=== PATIENT | male | born 1945 | race Caucasian/White ===

== ENCOUNTER 2016-12-17 22:06 | Emergency (ER) | payer OTHER, MEDICARE ==
[~2016-12-17] VITALS: Ht 154.9 cm; Wt 113.4 kg
[2016-12-17 22:22] VITALS: BP_SYST 127
--- NOTE | 2016-12-17 22:30 | NUR ---
Placed in room 03 . Placed on campus monitor, blood pressure machine and pulse oximeter. To gown for exam. Side rails up. Report given to rn.
--- NOTE | 2016-12-17 22:30 | NUR ---
ER at bedside examining patient.
--- NOTE | 2016-12-17 22:33 | NUR ---
Patient AAO x4, sitting in bed, c/o intermittent cough with "runny nose", denies chest pain, denies n/v/d, denies shortness of breath, no acute distress noted. Will continue to monitor.
--- NOTE | 2016-12-17 23:30 | NUR ---
Patient resting quietly. No acute distress noted. Vital signs within normal range.
--- NOTE | 2016-12-18 00:05 | NUR ---
Patient given written and verbal discharge instructions and verbalizes understanding. ER MD discussed with patient the results and treatment provided. Patient in stable condition. ID arm band removed. Rx of albuterol, tylenol, z-nga given. Patient educated on pain management and to follow up with PMD. Pain Scale 0/10. Opportunity for questions provided and answered.
[2016-12-18 00:12] VITALS: BP_SYST 143
== END 2016-12-18 00:12 | disposition home or self-care (01) ==
LOC: SED 22:06
DX: J20.9 Acute bronchitis, unspecified (principal)
CPT/HCPCS: 71010; 99283

== ENCOUNTER 2020-08-03 15:41 | Emergency (ER) | payer OTHER, MEDICARE, SELFPAY ==
[~2020-08-03] VITALS: Ht 182.9 cm; Wt 112.0 kg
[2020-08-03 15:41] VITALS: BP_SYST 130
[2020-08-03] MEDS ORDERED: ALBUTEROL MDI INHALATION 8 GM INH INH PRN (17:00)
[2020-08-03] MEDS ORDERED: AZITHROMYCIN 250 MG TABLET PO ONE (17:00)
[2020-08-03] MEDS ORDERED: DEXAMETHASONE SOD PHOSPHATE 10 MG/ML VIAL IM ONE (17:00)
[2020-08-03 18:55] VITALS: BP_SYST 137
== END 2020-08-03 18:55 | disposition home or self-care (01) ==
LOC: SED 15:41
DX: U07.1 COVID-19 (principal)
CPT/HCPCS: 36415; 71045; 86710; 96372; 99284; J1100; Q0144